=== PATIENT | female | born 1990 | race Caucasian/White ===

== ENCOUNTER 2025-02-07 14:13 | Emergency (ER) | payer MEDICAID ==
[~2025-02-07] VITALS: Ht 154.9 cm; Wt 83.0 kg
[2025-02-07 14:20] VITALS: O2SAT 100
[2025-02-07 15:39] LABS: HEMATOCRIT 43.6 % (36.0-48.0); HEMOGLOBIN 14.3 g/dL (12.0-16.0); MEAN CORPUSCULAR HEMOGLOBIN 29.3 pg (28.0-32.0); MEAN CORPUSCULAR HGB CONC 32.9 g/dL (31.0-37.0); MEAN CORPUSCULAR VOLUME 89.1 fL (81.0-99.0); PLATELET 268 x1000/uL (130-400); RED BLOOD CELL COUNT 4.89 mill/uL (4.2-5.4); RED CELL DISTRIBUTION WIDTH 13.5 % (11.6-14.6); WHITE BLOOD COUNT 9.2 x1000/uL (4.5-11.0)
[2025-02-07 15:45] LABS: CHLORIDE 106 mEq/L (98-107); POTASSIUM 3.6 mEq/L (3.5-5.1); SODIUM 138 mEq/L (136-145)
[2025-02-07 15:46] LABS: CARBON DIOXIDE 26 mEq/L (21-32)
[2025-02-07 15:51] LABS: CREATININE 0.8 mg/dL (0.6-1.0); GLUCOSE 97 mg/dL (70-105); HCG SCREEN NEGATIVE; UREA NITROGEN BLOOD 14 mg/dL (9-23)
[2025-02-07 16:02] LABS: TROPONIN I HIGH SENSITIVITY < 4 ng/L (3.0-34)
[2025-02-07 16:20] VITALS: BP 108/75; PULSE 72; RESP 18; TEMP 36.9; O2SAT 99
== END 2025-02-07 16:22 | disposition home or self-care (01) ==
LOC: ER 14:13
DX: R00.2 Palpitations (principal); R53.83 Other fatigue; T49.0X5A Adverse effect of local antifungal, anti-infective and anti-inflammatory drugs, initial encounter; G43.909 Migraine, unspecified, not intractable, without status migrainosus; Z98.890 Other specified postprocedural states; Y92.89 Other specified places as the place of occurrence of the external cause
CPT/HCPCS: 36415; 80048; 84484; 84703; 85027; 93005; 99284